=== PATIENT | female | born 1995 | race Caucasian/White ===

== ENCOUNTER 2018-05-31 01:04 | Emergency (ER) | payer SELFPAY ==
[~2018-05-31] VITALS: Ht 144.8 cm; Wt 66.8 kg
[2018-05-31 01:15] VITALS: Ht 144.8 cm; Wt 66.8 kg
[2018-05-31] MEDS ORDERED: PROZAC10 MG PO (01:16)
[2018-05-31] MEDS ORDERED: BIRTH CONTROL (01:16)
[2018-05-31] MEDS ORDERED: MOBIC7.5 MG PO (01:16)
[2018-05-31] MEDS ORDERED: PROAIR HFA8.5 GM INH (02:18)
[2018-05-31 03:03] VITALS: BP 117/76
== END 2018-05-31 03:05 | disposition home or self-care (01) ==
LOC: D.ER 01:04
DX: J40 Bronchitis, not specified as acute or chronic (principal); F17.200 Nicotine dependence, unspecified, uncomplicated